=== PATIENT | male | born 1965 | race Caucasian/White ===

== ENCOUNTER 2016-10-02 09:58 | Emergency (ER) | payer OTHER ==
[~2016-10-02] VITALS: Ht 182.9 cm; Wt 117.9 kg
[2016-10-02 10:08] VITALS: BP 127/89
--- NOTE | 2016-10-02 10:22 | ED GENERAL ADULT ---
History of Present Illness General Chief Complaint: General Adult Stated Complaint: MEDICATION REFILL Source: patient Exam Limitations: no limitations Vital Signs & Intake/Output Vital Signs & Intake/Output Vital Signs Date Time Temp Pulse Resp B/P Pulse O2 O2 Flow FiO2 Ox Delivery Rate 10/02 1008 98.4 73 20 127/89 97 Room Air Allergies Coded Allergies: chlorpromazine (From THORAZINE) (Severe, ANAPHYLAXSIS 10/02/16) Reconcile Medications Alprazolam 1 MG TABLET 1 TAB PO TIDPRN PRN ANXIETY (Reported) Alprazolam 1 MG TABLET 1 TAB PO TIDPRN PRN ANXIETY Eszopiclone 3 MG TABLET 1 TAB PO QPM SLEEP (Reported) Eszopiclone (Lunesta) 3 MG TABLET 1 TAB PO QPM SLEEP Metoprolol Succinate 50 MG TAB.ER.24H 1 TAB PO DAILY HEART (Reported) Metoprolol Succinate 50 MG TAB.ER.24H 1 TAB PO DAILY HTN Quetiapine Fumarate (Seroquel) 100 MG TABLET 1 TAB PO QPM SLEEP (Reported) Quetiapine Fumarate (Seroquel) 100 MG TABLET 1 TAB PO QPM MENTAL HEALTH Sertraline HCl (Zoloft) 50 MG TABLET 1 TAB PO DAILY MENTAL HEALTH Triage Note: REQUESTING REFILL OF MEDICATIONS. STATES HE SWITCHED INSURANCES AND HAS APPOINTMENT NON 10/08 WITH [facility]. RAN OUT OF MEDS 10 DAYS AGO. METOPROLOL 50 MG QD SEREQUEL 100MG HS APRAZALAM 1 MG TID LUNESTA 3 MG HS [facility] Triage Nurses Notes Reviewed? yes Onset: Gradual Duration: week(s): (1), constant Timing: recent history Injury Environment: home Severity: mild, moderate Severity Numbers: 4 No Modifying Factors: none Associated Symptoms: DENIES HPI: This is a 50-year-old male with history of hypertension anxiety insomnia presents emergency room for evaluation requesting medication of his metoprolol circumflex will Xanax Lunesta and Zoloft. He states that he recently got new insurance and had to begin seeing a new primary care physician who he was scheduled to see today however the appointment was canceled. He is been without his medication for the past 1 week and states that he had a panic attack in the car yesterday. Patient declining wishing to speak with crisis. He denies any chest pain shortness of breath or no other complaints. There are no modifying factors or associated symptoms otherwise. The patient feels at this time, he denies anxiety presentLY (ROSENDA ALVARADO) Past History Travel History Traveled to [place] past 21 day No Medical History Any Pertinent Medical History? see below for history Cardiovascular: hypertension Psychiatric: bipolar disease Surgical History Surgical History: none Psychosocial History What is your primary language Kyrgyz Tobacco Use: Never used ETOH Use: occasional use Family History Hx Contributory? No (ROSENDA ALVARADO) Review of Systems Review of Systems Constitutional: Reports: see HPI. All Other Systems: Reviewed and Negative Comments Review of systems: See HPI, All other systems negative. Constitutional, no chills no fever, no malaise HEENT no sore throat no congestion Cardiovascular: No chest pain , no palpitation , Skin, no jaundice no rashes, no change in skin Respiratory: No dyspnea no cough no sputum GI: No nausea no vomiting, no diarrhea, : No dysuria Muscle skeletal: No joint pain, no joint swelling, no back pain Neurologic: No numbness no confusion, no headache Psych: No stress anxiety no depression,. Heme/endocrine: No bruising no bleeding Immunology: No lymphadenopathy (ROSENDA ALVARADO) Physical Exam Physical Exam General Appearance: well developed/nourished, no apparent distress, alert, awake , comfortable Comments: Well-developed well-nourished patient in no apparent distress. HEENT: Atraumatic, extraocular motion intact Neck: Supple, FROM, Back: FROM Cardiovascular: Regular rate and rhythms no murmurs rubs or gallops, Respiratory: Chest nontender.There were no bony deformities, no asymmetry. No respiratory distress. Patient speaking in full complete sentences. Breath sounds clear to auscultation bilaterally: NO W/R/R Extremities: full range of motion Neuro: Alert and oriented x3 Skin: Warm & dry;No appreciable rash on exposed skin Psych: Mood affect normal, normal memory normal judgment. Core Measures ACS in differential dx? No CVA/TIA Diagnosis: No Severe Sepsis Present: No Septic Shock Present: No (ROSENDA ALVARADO) Progress Differential Diagnoses I considered the following diagnoses in my evaluation of the patient: Medication refill anxiety hypertensive urgency versus emergency hypertension Plan of Care: Patient clinically appears well I discussed with him that I will be able to provide him with refills of his medication for the next 6 days until he is seen by his new primary care physician, advised return anytime sooner with any concerns they feel comfortable plan clear for discharge. Initial ED EKG: none (ROSENDA ALVARADO) Departure Departure Time of Disposition: 1038 Disposition: HOME OR SELF CARE Condition: Stable Clinical Impression Primary Impression: Medication refill Referrals: KYLEE BYRNE MD (PCP/Family) Additional Instructions: Follow up as scheduled with your new primary care physician next Friday. Your prescriptions were sent to [facility] Departure Forms: Customer Survey General Discharge Information Prescriptions: Current Visit Scripts Metoprolol Succinate 1 TAB PO DAILY #30 TAB Quetiapine Fumarate (Seroquel) 1 TAB PO QPM #30 TAB Eszopiclone (Lunesta) 1 TAB PO QPM #30 TAB Sertraline HCl (Zoloft) 1 TAB PO DAILY #30 TAB Alprazolam 1 TAB PO TIDPRN PRN ANXIETY #20 TAB (ROSENDA ALVARADO) PA/ADJUNCT FACULTY FOR MEDICAL TERMINOLOGY Co-Sign Statement Statement: ED Attending supervision documentation- [] I saw and evaluated the patient. I have also reviewed all the pertinent lab results and diagnostic results. I agree with the findings and the plan of care as documented in the PA's/ADJUNCT FACULTY FOR MEDICAL TERMINOLOGY's documentation. x I have reviewed the ED Record and agree with the PA's/ADJUNCT FACULTY FOR MEDICAL TERMINOLOGY's documentation. [] Additions or exceptions (if any) to the PAs/ADJUNCT FACULTY FOR MEDICAL TERMINOLOGY's note and plan are summarized below: [] (MONICA HU,LYDIA) Critical Care Note Critical Care Note Critical Care Time: non-applicable (ROSENDA ALVARADO)
[2016-10-02] MEDS ORDERED: SEROQUEL100 M1 PO ×2 (10:29→10:41)
[2016-10-02] MEDS ORDERED: ESZOPICLONE3 M1 PO (10:29)
[2016-10-02] MEDS ORDERED: METOPROLOL SUCC50 M2 PO ×2 (10:29→10:41)
[2016-10-02] MEDS ORDERED: ALPRAZOLAM1 M2 PO ×2 (10:30→10:41)
[2016-10-02] MEDS ORDERED: ZOLOFT50 M1 PO (10:41)
[2016-10-02] MEDS ORDERED: LUNESTA3 M1 PO (10:41)
== END 2016-10-02 10:51 ==
LOC: ERH 09:58
DX: Z76.0 Encounter for issue of repeat prescription (principal)
CPT/HCPCS: 99281

== ENCOUNTER 2016-10-05 17:51 | Emergency (ER) | payer OTHER ==
[~2016-10-05] VITALS: Ht 182.9 cm; Wt 117.9 kg
[~2016-10-05 17:51] MED LIST: ALPRAZOLAM1 M2 PO; ESZOPICLONE3 M1 PO; LUNESTA3 M1 PO; METOPROLOL SUCC50 M2 PO; SEROQUEL100 M1 PO; ZOLOFT50 M1 PO
[2016-10-05] MEDS ORDERED: HYDROMORPHONE HC2 M1 PO (18:21)
[2016-10-05] MEDS ORDERED: CELEBREX100 M1 PO (18:21)
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
[2016-10-05] MEDS ORDERED: OXYCODONE HCL5 M1 PO (18:23)
[2016-10-05] MEDS ORDERED: SERTRALINE HCL50 MG PO (18:23)
[2016-10-05 19:23] LABS: ABSOLUTE BASOPHIL COUNT 0 /CUMM (0.0-0.2); ABSOLUTE EOSINOPHIL COUNT 0 /CUMM (0.0-0.7); ABSOLUTE GRANULOCYTE CT 10.6 /CUMM (1.4-6.5); ABSOLUTE LYMPH COUNT 1.1 /CUMM (1.2-3.4); ABSOLUTE MONOCYTE COUNT 0.2 /CUMM (0.10-0.60); BASOPHIL % 0.1 % (0.0-2.0); EOSINOPHIL % 0.2 % (0-5); MEAN CORPUSCULAR HGB 27.8 PG (27.0-31.0); MEAN CORPUSCULAR VOLUME 84.1 FL (80.0-94.0); MEAN PLATELET VOLUME 7.9 FL (7.4-10.4); PLATELET COUNT 239 /CUMM (130-400); RBC DISTRIBUTION WIDTH 14.5 % (11.5-14.5); RED BLOOD CELL CT 6.07 /CUMM (4.70-6.10)
[2016-10-05 19:37] LABS: GRANULOCYTE % 88.5 % (42.2-75.2)
[2016-10-06 00:55] VITALS: BP 132/78
== END 2016-10-06 00:55 ==
LOC: ERH 17:51
PROVIDERS: Emergency Medicine
DX: F11.20 Opioid dependence, uncomplicated (principal); F10.10 Alcohol abuse, uncomplicated
CPT/HCPCS: 80307; G0480

== ENCOUNTER 2016-12-28 05:22 | Emergency (ER) | payer OTHER ==
[~2016-12-28 05:22] MED LIST changes: +CELEBREX100 M1 PO; +HYDROMORPHONE HC2 M1 PO; +OXYCODONE HCL5 M1 PO; +SERTRALINE HCL50 MG PO
[2016-12-28 05:27] VITALS: BP 135/77
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
[2016-12-28] MEDS ORDERED: PERCOCET 5-3251 EACH PO (06:47)
--- NOTE | 2016-12-28 06:55 | RADIOLOGY REPORT ---
EXAMINATION: XR FOREARM, RIGHT CLINICAL INFORMATION: Pain COMPARISON: None TECHNIQUE: AP and lateral views of the right forearm were obtained. FINDINGS: Overlying cast material obscures fine bony detail. There is a mildly displaced intra-articular fracture of the distal radius. Alignment across the wrist appears preserved on these views. No additional acute findings are seen. IMPRESSION: Mildly displaced intra-articular fracture of the distal radius. No prior studies available for comparison.
== END 2016-12-28 06:51 ==
LOC: ERH 05:22
DX: S52.501A Unspecified fracture of the lower end of right radius, initial encounter for closed fracture (principal); W19.XXXA Unspecified fall, initial encounter
CPT/HCPCS: 73090-RT